=== PATIENT | male | born 2000 | race Asian ===

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

== ENCOUNTER 2019-02-01 21:44 | Emergency (ER) | payer OTHER ==
[~2019-02-01] VITALS: Ht 177.8 cm; Wt 73.0 kg
[2019-02-01 23:56] VITALS: BP 138/77; TEMP 98.5
== END 2019-02-01 23:55 | disposition home or self-care (01) ==
LOC: ED 21:44
DX: B34.9 Viral infection, unspecified (principal); M54.5 Low back pain; J02.9 Acute pharyngitis, unspecified
CPT/HCPCS: 87502; 87651; 99283